=== PATIENT | male | born 1975 | race Caucasian/White ===

== ENCOUNTER 2018-03-05 13:37 | Emergency (ER) | payer OTHER ==
[~2018-03-05] VITALS: Ht 190.5 cm; Wt 136.1 kg
[~2018-03-05 13:37] MED LIST: CEPH500 PO; FAMO20 PO; HYDACE5 PO
[2018-03-05] MEDS ORDERED: LOSA50 PO ×2 (13:46→14:14)
== END 2018-03-05 14:16 | disposition home or self-care (01) ==
LOC: ER 13:37
DX: Z76.0 Encounter for issue of repeat prescription (principal); I10 Essential (primary) hypertension; Z88.1 Allergy status to other antibiotic agents; Z79.899 Other long term (current) drug therapy
CPT/HCPCS: 99281

== ENCOUNTER → 2021-10-30 | Outpatient (CLI) | payer OTHER ==
[~2021-10-30] MED LIST changes: +LOSA50 PO
[2021-10-30 15:51] LABS: Anion Gap 2 mmol/L (6-16); Blood Urea Nitrogen 16 mg/dL (8-24); CO2, Blood 33 mmol/L (21-32); Calcium, Blood 9.4 mg/dL (8.5-10.1); Chloride, Blood 103 mmol/L (98-108); Creatinine, Blood 1.14 mg/dL (0.60-1.20); Glomerular Filtration Rate >60 (60-); Glucose, Blood 153 mg/dL (70-99); Sodium, Blood 138 mmol/L (136-145)
== END | disposition home or self-care (01) ==
LOC: LAB SHORT 13:29
PROVIDERS: Hospitalist
DX: I10 Essential (primary) hypertension (principal)
CPT/HCPCS: 80048

== ENCOUNTER → 2023-08-19 | Outpatient (CLI) | payer OTHER ==
[2023-08-19 19:42] LABS: BASOPHILS ABSOLUTE AUTO 0.06 K/mm3 (0.00-0.23); BASOPHILS PERCENT AUTO 1 % (0-2); EOSINOPHILS ABSOLUTE AUTO 0.43 K/mm3 (0.00-0.68); EOSINOPHILS PERCENT AUTO 6 % (0-6); Hematocrit 45.8 % (37.0-53.0); Hemoglobin 15.8 g/dL (13.5-17.5); IMMATURE GRAN ABSOLUTE AUTO 0.03 K/mm3 (0.00-0.10); IMMATURE GRAN PERCENT AUTO 0 % (0-1); LYMPHOCYTES ABSOLUTE AUTO 2.11 K/mm3 (0.84-5.20); LYMPHOCYTES PERCENT AUTO 27 % (21-46); MONOCYTES ABSOLUTE AUTO 0.65 K/mm3 (0.16-1.47); MONOCYTES PERCENT AUTO 8 % (4-13); Mean Corpuscular HGB 31.2 pg (26.0-34.0); Mean Corpuscular HGB Conc 34.5 g/dL (31.5-36.5); Mean Corpuscular Volume 91 fL (80-100); Mean Platelet Volume 9.7 fL (9.1-12.4); NEUTROPHILS ABSOLUTE AUTO 4.56 K/mm3 (1.96-9.15); NEUTROPHILS PERCENT AUTO 58 % (41-73); Platelet Count 269 K/mm3 (150-400); RDW Coefficient Variation 14.1 % (11.7-14.2); RDW Standard Deviation 46.3 fL (35.1-46.3); Red Blood Cell Count 5.06 M/mm3 (4.30-5.90); White Blood Cell Count 7.84 K/mm3 (4.00-11.30)
[2023-08-21 13:11] LABS: A/G RATIO 1.5 (1.2-2.2); BILIRUBIN, TOTAL 0.5 mg/dL (0.0-1.2); CALCIUM, SERUM 9.2 mg/dL (8.7-10.2); CREATININE, SERUM 1.1 mg/dL (0.76-1.27); GLOBULIN, TOTAL 2.9 g/dL (1.5-4.5); POTASSIUM, SERUM 3.8 mmol/L (3.5-5.2); PROTEIN, TOTAL, SERUM 7.2 g/dL (6.0-8.5)
== END | disposition home or self-care (01) ==
LOC: LAB SHORT 18:28 → LAB 18:28
PROVIDERS: Hospitalist
DX: I10 Essential (primary) hypertension (principal)
CPT/HCPCS: 80053; 83525; 84443; 85025

== ENCOUNTER → 2024-09-22 | Outpatient (CLI) | payer OTHER ==
[2024-09-22 15:53] LABS: Bun/Creatinine Ratio 15.1 (12.0-20.0); Calcium, Blood 8.6 mg/dL (8.5-10.1); Creatinine, Blood 0.93 mg/dL (0.60-1.20); Potassium, Blood 3.6 mmol/L (3.5-5.5)
== END ==
LOC: LAB SHORT 10:45 → LAB 10:45
PROVIDERS: Hospitalist
DX: I10 Essential (primary) hypertension (principal)
CPT/HCPCS: 80048